=== PATIENT | male | born 1990 | race Caucasian/White ===

== ENCOUNTER 2018-09-09 14:22 | Emergency (ER) | payer OTHER ==
[~2018-09-09] VITALS: Ht 188 cm; Wt 86.2 kg
[2018-09-09] MEDS ORDERED: ZOFRAN4 M3 ORAL (14:50)
[2018-09-09] MEDS ORDERED: TYLENOL EXTRA500 MG ORAL (14:50)
--- NOTE | 2018-09-09 14:50 | Emergency Room Report ---
History of Present Illness General Chief Complaint: Abdominal Pain Source: Patient Present Illness HPI 28-year-old male patient presents the ER complaining of vomiting and abdominal pain for the past 2 days. Reports abdominal pain is epigastric and right upper quadrant. Denies radiation of pain. Reports vomiting intermittently for the past 2 days. States it may be related to eating some bad fish 2 days ago at a restaurant for lunch or eating eggs in the morning. Denies contacts with similar symptoms. Denies hematemesis or coffee-ground emesis. Denies diarrhea. Reports normal bowel movements. Denies blood in stool. Denies syncope or dizziness. Denies fever, chest pain, shortness of breath. Denies flank pain. Denies dysuria, hematuria. States is been able to tolerate p.o. water since that time without vomiting. States is been able to go to the gym and work out and go about normal activities. Denies other aggravating or relieving factors. Denies drinking or drug use. Allergies: Coded Allergies: No Known Allergies (Unverified , 09/09/18) Patient History Past Medical History: see triage record Reviewed Nursing Documentation: PMH: Agreed; PSxH: Agreed Nursing Documentation-PMH Past Medical History: No Stated History Review of Systems All Other Systems: negative except mentioned in HPI Physical Exam Vital Signs Date Time Temp Pulse Resp B/P (MAP) Pulse Ox O2 Delivery O2 Flow Rate FiO2 09/09/18 14:31 98.8 64 17 113/61 97 Room Air Sp02 EP Interpretation: reviewed, normal General Appearance: well appearing, no apparent distress, alert, GCS 15, non- toxic Head: normocephalic, atraumatic Eyes: bilateral eye normal inspection, bilateral eye PERRL ENT: hearing grossly normal, normal pharynx, no angioedema, normal voice, uvula midline, moist mucus membranes Neck: full range of motion Respiratory: lungs clear, normal breath sounds, no rhonchi, no respiratory distress, no accessory muscle use, no wheezing, speaking full sentences Cardiovascular #1: regular rate, rhythm, no edema, normal capillary refill Gastrointestinal: normal bowel sounds, non tender, soft, no mass, non-distended , no guarding, no rebound, other - Negative Morelos, negative obturator, negative Rovsing, negative heel strike Genitourinary: no CVA tenderness Musculoskeletal: back normal, digits/nails normal, gait/station normal, normal range of motion, non-tender Neurologic: alert, oriented x3, responsive, motor strength/tone normal, sensory intact Psychiatric: mood/affect normal Skin: no rash Medical Decision Making PA Attestation Dr. Irizarry is my supervising Physician whom patient management has been discussed with. Diagnostic Impression: Primary Impression: Abdominal pain with vomiting ER Course Pt. presents to the ED c/o vomiting and abdominal pain. Ddx considered but are not limited to viral syndrome, gastritis, enteritis, food poisoning, GERD, reflux. Negative Morelos, low suspicion for cholecystitis. Vital signs: are WNL, pt. is afebrile at discharge. ordered zofran. ED COURSE: Provide with Zofran and Tylenol. Physical exam benign, no abdominal TTP, negative Morelos sign, negative Rovsing, negative obturator, low suspicion for appendicitis or cholecystitis, does not require labs or imaging at this time. No fever, no blood in stool, no recent travel or hospitalizations, does not require abx treatment at this time. No signs of dehydration, moist mucus membranes, cap refill <2seconds, normal skin turgor. Patient instructed on BRAT diet. Patient instructed to remain hydrated, drink plenty of fluids. Patient questions asked and answered. Patient states understanding and agreement to treatment plan. ER precautions given, return to ER for new or worsening of symptoms. Drink plenty of fluids. Able to tolerate PO fluids in the ER without emesis. DISCHARGE: Rx provided for Tylenol for pain symptoms Rx provided for zofran At this time pt. is stable for d/c to home. Patient is resting comfortably, laughing, in no acute distress, nontoxic appearing. Will provide printed patient care instructions, and any necessary prescriptions. Care plan and follow up instructions have been discussed with the patient prior to discharge. Patient instructed to followup with PCP in 3-5 days. Patient reports understanding and agreement to treatment plan. Patient questions asked and answered. ER precautions given; patient instructed to return to ER for new or worsening of symptoms including but not limited to fever, intractable vomiting, severe abdominal pain, blood in stool. - Please note that this Emergency Department Report was dictated using [employer] technology software, occasionally this can lead to erroneous entry secondary to interpretation by the dictation equipment. Last Vital Signs Date Time Temp Pulse Resp B/P (MAP) Pulse Ox O2 Delivery O2 Flow Rate FiO2 09/09/18 14:31 98.8 64 17 113/61 97 Room Air Status: improved Disposition: HOME, SELF-CARE Condition: Stable Scripts Acetaminophen* (TYLENOL EXTRA STRENGTH*) 500 Mg Tablet 500 MG ORAL Q8H PRN for Prn Headache/Temp > 101, #30 TAB 0 Refills Prov: Gordo Emmanuel 09/09/18 Ondansetron* (ZOFRAN*) 4 Mg Tablet 4 MG ORAL Q6H PRN for Nausea & Vomiting, #8 TAB Prov: Gordo Emmanuel 09/09/18 Patient Instructions: Abdominal Pain, Adult, Nausea and Vomiting, Adult, Easy- to-Read Additional Instructions: Followup with primary care provider in 3 -5 days. Avoid spicy foods, avoid dairy foods. BRAT diet: bananas, rice, apple sauce, toast. Drink plenty of fluids. Take medications as directed. Patient questions asked and answered. ER precautions given, patient instructed to return to ER immediately for any new or worsening of symptoms. Gordo Emmanuel Sep 09, 2018 14:50
[2018-09-09 14:56] VITALS: BP 113/61
[2018-09-09 14:58] VITALS: BP 113/61
--- NOTE | 2018-09-09 14:58 | NUR ---
ER DISCHARGE NOTE: Patient is cleared to be discharged per ERMD, pt is aox4, on room air, with stable vital signs. pt was given dc and prescription instructions, pt was able to verbalize understanding, pt is able to ambulate with steady gait. pt took all belongings.
== END 2018-09-09 16:04 | disposition home or self-care (01) ==
LOC: EMR 15:00
DX: R10.9 Unspecified abdominal pain (principal)
CPT/HCPCS: 99282

== ENCOUNTER 2019-12-17 12:27 | Emergency (ER) | payer OTHER ==
[~2019-12-17 12:27] MED LIST: TYLENOL EXTRA500 MG ORAL; ZOFRAN4 M3 ORAL
--- NOTE | 2019-12-17 12:35 | NUR ---
ED Nurse Note: patient left his friend without being triaged and seen.
== END 2019-12-17 16:39 | disposition left against medical advice (07) ==
LOC: EMR 13:14 → MERGE 13:14 → EMR 16:39
DX: Z53.21 Procedure and treatment not carried out due to patient leaving prior to being seen by health care provider (principal)

== ENCOUNTER 2019-12-28 20:43 | Emergency (ER) | payer MEDICAID, OTHER ==
[~2019-12-28] VITALS: Ht 182.9 cm; Wt 86.2 kg
[2019-12-28] MEDS ORDERED: Cephalexin 500mg cap ORAL ONE (21:30)
[2019-12-28] MEDS ORDERED: Tetanus/Diptheria/Pertussis IM ONE (21:30)
--- NOTE | 2019-12-28 21:31 | Emergency Room Report ---
History of Present Illness General Chief Complaint: Pain Source: Patient Present Illness HPI Patient is a 29-year-old male who presents after left hand numbness. Reports having injury approximately 1 week ago. He states he fell onto glass and taken the glass out of his Wrist. He states he is right-hand dominant. Denies any fever. Had not had a recent tetanus vaccine. 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 Patient History Past Medical History: see triage record Reviewed Nursing Documentation: PMH: Agreed; PSxH: Agreed Nursing Documentation-PMH Past Medical History: No Stated History Review of Systems All Other Systems: negative except mentioned in HPI Physical Exam Vital Signs Date Time Temp Pulse Resp B/P (MAP) Pulse Ox O2 Delivery O2 Flow Rate FiO2 12/28/19 20:55 99.1 74 18 112/70 (84) 98 Room Air General Appearance: well appearing, no apparent distress, alert, GCS 15 Head: normocephalic, atraumatic ENT: hearing grossly normal, normal voice Neck: full range of motion, supple Respiratory: normal inspection, no respiratory distress, speaking full sentences Cardiovascular #1: normal inspection Musculoskeletal: other - Full range of motion to the left hand. Able to abduct and adduct the fingers. Able to make a fist. Neurologic: motor strength/tone normal, sfdc solution architect III-XII nml as tested, oriented x3 , normal gait Psychiatric: mood/affect normal Skin: no rash, other - Healing laceration approximately 3 cm to the left wrist. Medical Decision Making Diagnostic Impression: Primary Impression: Laceration ER Course Patient presented for left-sided hand pain. Differential diagnosis include was not limited to foreign body, nerve injury, cellulitis among others. Extremity was ordered to patient's recent trauma. Patient's laceration does not appear to be amenable to suturing to delayed presentation. X-ray imaging 3 views interpreted by me showed normal bony alignment without evident fracture no foreign body was noted. Patient may have some nerve injury. Patient was advised to follow-up with hand specialty for further evaluation and treatment. He is given tetanus vaccine as well as Keflex prescription. Patient is advised to return if any worsening condition or if any changes in status that are concerning. This report is dictated with [employer] senior computer specialist software which may occasionally lead to discrepancies related to use of this software. Last Vital Signs Date Time Temp Pulse Resp B/P (MAP) Pulse Ox O2 Delivery O2 Flow Rate FiO2 12/28/19 20:55 99.1 74 18 112/70 (84) 98 Room Air Status: improved Disposition: HOME, SELF-CARE Condition: Stable Scripts Ibuprofen* (MOTRIN*) 600 Mg Tablet 600 MG ORAL Q8H PRN for FOR PAIN, #20 TAB 0 Refills Prov: Iftikhar Villatoro MD 12/28/19 Cephalexin* (KEFLEX*) 500 Mg Capsule 500 MG ORAL EVERY 6 HOURS, #28 CAP Prov: Iftikhar Villatoro MD 12/28/19 Referrals: NON PHYSICIAN (PCP) Iftikhar Villatoro MD Dec 28, 2019 21:31
[2019-12-28 21:52] VITALS: BP 114/68
[2019-12-28] MEDS ORDERED: CEPHALEXIN500 MG ORAL (22:14)
[2019-12-28] MEDS ORDERED: IBUPROFEN600 M1 ORAL (22:14)
[2019-12-28 22:25] VITALS: BP 115/75
--- NOTE | 2019-12-29 10:12 | Diagnostic Imaging Report ---
EXAM: X-RAY XRAY Wrist Complete L CLINICAL HISTORY: Trauma with laceration and arm pain. Evaluate for foreign body. COMPARISON: None FINDINGS: Total of 3 views of the left wrist were obtained. Alignment is anatomic. There is no fracture, bony lesions or erosions. Joint spaces are unremarkable. Soft tissue laceration noted at the volar aspect of the wrist. No radiopaque foreign body seen. IMPRESSION: SOFT TISSUE LACERATION. NO RADIOPAQUE FOREIGN BODY SEEN.
== END 2019-12-28 22:25 | disposition home or self-care (01) ==
LOC: MERGE 21:15 → EMR 21:15
DX: S61.512A Laceration without foreign body of left wrist, initial encounter (principal); W01.110A Fall on same level from slipping, tripping and stumbling with subsequent striking against sharp glass, initial encounter; Y92.9 Unspecified place or not applicable; Z23 Encounter for immunization
CPT/HCPCS: 73110; 90471; 90715; Z7502; 99283

== ENCOUNTER 2020-09-15 16:44 | Emergency (ER) | payer OTHER ==
[~2020-09-15] VITALS: Ht 172.7 cm; Wt 79.4 kg
[~2020-09-15 16:44] MED LIST changes: +CEPHALEXIN500 MG ORAL; +IBUPROFEN600 M1 ORAL
--- NOTE | 2020-09-15 16:53 | Emergency Room Report ---
History of Present Illness General Source: Patient, EMS Present Illness HPI Patient was driving and started having anxiety. He became short of breath and started having palpitations. He then felt tingling around his mouth and face. His hands were not found up. He called 911. Patient states he was drinking a lot of coffee earlier today. Paramedics responded. They found him with normal vital signs and good oximetry. The patient had an episode like this before. He is not take any medication at this time. He does smoke and occasionally drinks alcohol but none last night. Patient has had a mild cough. He is concerned about possible Covid and wants testing. No fevers, chills, sore throat, chest pain, nausea, vomiting, diarrhea, dysuria, abdominal pain, joint pain, rashes, headache. Patient states he suffers from depression and therefore drinks a lot of coffee and caffeine drinks. Denies SI or HI. Allergies: Coded Allergies: No Known Allergies (Unverified , 09/09/18) Patient History Past Medical History: see triage record Social History: Reports: smoking, alcohol use Social History Narrative mechanic driver Reviewed Nursing Documentation: PMH: Agreed; PSxH: Agreed Review of Systems All Other Systems: negative except mentioned in HPI Physical Exam Vital Signs Date Time Temp Pulse Resp B/P (MAP) Pulse Ox O2 Delivery O2 Flow Rate FiO2 09/15/20 16:43 98.1 110 18 130/80 (97) 98 Room Air Sp02 EP Interpretation: reviewed, normal General Appearance: well appearing, no apparent distress, GCS 15 Head: normocephalic Eyes: bilateral eye normal inspection, bilateral eye PERRL, bilateral eye EOMI ENT: moist mucus membranes Neck: supple Respiratory: chest non-tender, lungs clear, normal breath sounds Cardiovascular #1: no edema, tachycardia Cardiovascular #2: 2+ radial (R) Gastrointestinal: normal inspection, normal bowel sounds, non-distended Musculoskeletal: back normal, normal range of motion, no calf tenderness, gait/station normal Neurologic: alert, oriented x3, grossly normal Psychiatric: mood/affect normal - He states he feels better after being evaluated by paramedics and is less anxious at this time Skin: no rash, warm/dry, other - Tattoos and calluses Medical Decision Making Diagnostic Impression: Primary Impression: Anxiety Additional Impressions: Hyperventilation COVID-19 ruled out by laboratory testing ER Course Patient presents with palpitations and feeling anxious with normal vital signs. Differential includes acute hyperventilation, arrhythmia, cardiac disease, PE amongst others. Based on history and exam, PE very low probability. Patient evaluated with EKG and serial exams. Patient also concerned about possible Covid. Covid antigen test will be sent. No treatment indicated at the moment. EKG normal, rate 68. COVID antigen test negative. Discussed findings and clinical diagnosis with patient. Discussed treatment plan with patient. No medical emergency at this time. Patient stable for outpatient observation and treatment. Microbiology Date/Time Source Procedure Growth Status 09/15/20 16:50 Nasopharynx SARS-CoV-2 Antigen (Rapid)(KASSANDRA) - Final Complete EKG Diagnostic Results Rate: normal Rhythm: NSR ST Segments: no acute changes Rhythm Strip Diag. Results EP Interpretation: yes Rhythm: NSR, no PVC's, no ectopy Last Vital Signs Date Time Temp Pulse Resp B/P (MAP) Pulse Ox O2 Delivery O2 Flow Rate FiO2 09/15/20 17:55 68 18 121/78 98 Room Air 09/15/20 16:43 98.1 Status: improved Disposition: HOME, SELF-CARE Condition: Improved Scripts Hydroxyzine Pamoate (VISTARIL) 25 Mg Capsule 25 MG PO Q8HR PRN for For Anxiety, #6 CAP Prov: Sánchez Segundo MD 09/15/20 Sánchez Segundo MD Sep 15, 2020 16:53
[2020-09-15 16:56] VITALS: BP 117/57
[2020-09-15] MEDS ORDERED: VISTARIL25 M1 PO (17:20)
--- NOTE | 2020-09-15 17:52 | NUR ---
pt arrived for anxiety attack while driving. pt states hx of anxiety, etoh/drug use. pt VSS. pt not having any signs of distress upon arrival to er. pt placed on continuous cardiac/O2 monitor. pt tested for covid per pt request. covid negative. VSS. pt cleared by MD for discharge.
[2020-09-15 17:55] VITALS: BP 121/78
--- NOTE | 2020-09-15 17:55 | NUR ---
ED Nurse Note: Pt cleared by health care Provider for discharge. DC instructions/prescription was given and explained to pt and verbalized understanding of teachings. All medical deviecs such as ID band removed. Pt is AAO x4, ambulatory and left with all personal belongings.
== END 2020-09-15 17:57 | disposition home or self-care (01) ==
LOC: EDBD 16:44 → EMR 17:50
DX: F41.9 Anxiety disorder, unspecified (principal); R06.4 Hyperventilation; F17.200 Nicotine dependence, unspecified, uncomplicated; F10.10 Alcohol abuse, uncomplicated
CPT/HCPCS: 93005; Z7502; 99283